=== PATIENT | female | born 1955 | race Two or more races ===

== ENCOUNTER 2017-10-12 10:45 | Day surgery (SDC) | payer OTHER ==
[~2017-10-12] VITALS: Ht 152.4 cm; Wt 65.8 kg
[~2017-10-12 10:45] MED LIST: BIOTIN1000 MCG PO; CITRACAL + BON1 EACH PO; FISH OIL 1,0001 EAC7 PO; MAGNESIUM100 MG PO; TURMERIC500 M2 PO; VITAMIN D35000 UNIT PO
[2017-10-12 11:31] VITALS: BP 155/93
[2017-10-12 17:47] VITALS: BP 130/67
== END 2017-10-12 17:48 | disposition home or self-care (01) ==
LOC: SDC 10:45
DX: M76.821 Posterior tibial tendinitis, right leg (principal); M72.2 Plantar fascial fibromatosis; K21.9 Gastro-esophageal reflux disease without esophagitis; E78.5 Hyperlipidemia, unspecified; I45.10 Unspecified right bundle-branch block; G47.30 Sleep apnea, unspecified; M65.9 Synovitis and tenosynovitis, unspecified; Z87.891 Personal history of nicotine dependence
CPT/HCPCS: 73630; 76000; 88304; J0131; J0690; J1100; J1170; J1885; J2250; J2310; J2405; J2710; J2795; J3010; J7643; S0020